=== PATIENT | female | born 1935 | race Caucasian/White ===

== ENCOUNTER 2020-09-06 13:13 | Emergency (ER) | payer OTHER, MEDICARE ==
[~2020-09-06] VITALS: Ht 152.4 cm; Wt 90.7 kg
[~2020-09-06 13:13] MED LIST: CALTRATE-600 W1 EACH OR; CENTRUM TABLET1 TAB OR; FOLIC ACID1 MG OR; LOPERAMIDE 2 MG2 M1 PO; METHOTREXATE 22.5 MG OR; OCUVEL CAPSULE1 EACH PO; TRAMADOL 50 MG50 MG PO; TRIAMTERENE-HC1 EAC1 OR
[2020-09-06 14:36] LABS: HEMATOCRIT 41.7 % (37.0-47.0); MCH 30.5 pg (26.0-34.0); MCHC 33.5 g/dL (28.0-37.0); MCV 90.9 fL (80.0-100.0); PLATELET COUNT 252 thou/uL (150-400); RBC 4.59 mil/uL (4.20-5.00); RDW 14.6 % (10.5-14.5); WBC 11.1 thou/uL (4.0-11.0)
[2020-09-06 14:45] LABS: CREATININE 0.9 mg/dL (0.6-1.0); POTASSIUM 3.4 mmol/L (3.5-5.1)
[2020-09-06 14:51] LABS: ALBUMIN 3.2 g/dL (3.4-5.0); TOTAL BILIRUBIN 1.2 mg/dL (0.2-1.0); TOTAL PROTEIN 7.6 g/dL (6.4-8.2)
[2020-09-06 15:50] LABS: ABSOLUTE NEUTROPHILS 7.9 thou/uL (1.4-8.2); PLATELET ESTIMATE NORMAL
[2020-09-06 17:25] LABS: URINE BILIRUBIN 1+ (Negative); URINE BLOOD NEGATIVE (Negative); URINE CLARITY CLEAR; URINE COLOR YELLOW; URINE GLUCOSE-RANDOM* NEGATIVE (Negative); URINE KETONES 1+ (Negative); URINE LEUKOCYTES-REFLEX NEGATIVE (Negative); URINE NITRITE-REFLEX NEGATIVE (Negative); URINE PROTEIN (DIPSTICK) NEGATIVE (Negative); URINE SPECIFIC GRAVITY 1.025 (1.005-1.035)
[2020-09-06 17:27] LABS: ICTOTEST (BILI CONFIRMATORY) Negative (Negative)
[2020-09-06] MEDS ORDERED: ZANAFLEX4 MG PO (17:52)
[2020-09-06 18:30] VITALS: BP 143/48
== END 2020-09-06 18:30 | disposition home or self-care (01) ==
LOC: ER 13:13
PROVIDERS: Emergency Medicine
DX: M54.5 Low back pain (principal); M06.9 Rheumatoid arthritis, unspecified; Z88.6 Allergy status to analgesic agent; Z88.0 Allergy status to penicillin; Z90.49 Acquired absence of other specified parts of digestive tract